=== PATIENT | female | born 1985 | race Hispanic/Latino ===

== ENCOUNTER 2021-12-02 21:57 | Emergency (ER) | payer OTHER ==
[~2021-12-02] VITALS: Ht 152.4 cm; Wt 82.6 kg
[2021-12-02] MEDS ORDERED: PRED20TA3 PO (23:44)
[2021-12-02] MEDS ORDERED: BENZ-39 PO (23:44)
[2021-12-02] MEDS ORDERED: ALBU8.5H8 IH (23:44)
[2021-12-02 23:48] VITALS: BP 130/78
[2021-12-03] MEDS ORDERED: PREDNISONE 20 MG TABLET PO ONE
[2021-12-03] MEDS ORDERED: GUAIFENESIN-CODEINE 5 ML SYRUP PO ONE
== END 2021-12-02 23:50 | disposition home or self-care (01) ==
LOC: EDH 21:57
DX: J06.9 Acute upper respiratory infection, unspecified (principal); Z20.822 Contact with and (suspected) exposure to COVID-19; Z90.49 Acquired absence of other specified parts of digestive tract; Z79.52 Long term (current) use of systemic steroids
CPT/HCPCS: 71045; 87635; 87804 ×2; 87880; 99284; C9803

== ENCOUNTER 2022-03-01 07:09 | Emergency (ER) | payer BC, OTHER ==
[~2022-03-01] VITALS: Ht 152.4 cm; Wt 81.6 kg
[~2022-03-01 07:09] MED LIST: ALBU8.5H8 IH; BENZ-39 PO; PRED20TA3 PO
[2022-03-01] MEDS ORDERED: SOLU-MEDROL 125MG VIAL IV SCH (08:00)
[2022-03-01] MEDS ORDERED: METH4TAB3 PO (08:14)
[2022-03-01 08:23] VITALS: BP 128/77
== END 2022-03-01 08:24 | disposition home or self-care (01) ==
LOC: EDH 07:09
DX: M43.6 Torticollis (principal); Z79.52 Long term (current) use of systemic steroids; Z90.49 Acquired absence of other specified parts of digestive tract
CPT/HCPCS: 99284; 96374; J2930